=== PATIENT | male | born 1970 | race Caucasian/White ===

== ENCOUNTER 2024-02-19 08:56 | Emergency (ER) | payer SELFPAY ==
[~2024-02-19] VITALS: Ht 177.8 cm; Wt 95.3 kg
[2024-02-19] MEDS ORDERED: PREDNISONE20 M1 PO (09:10)
[2024-02-19] MEDS ORDERED: TRIAMCINOLONE430 GM TD (09:10)
[2024-02-19] MEDS ORDERED: CEPHALEXIN500 M1 PO (09:10)
== END 2024-02-19 09:20 | disposition home or self-care (01) ==
LOC: ED 08:56
DX: L30.9 Dermatitis, unspecified (principal); L03.116 Cellulitis of left lower limb; Z91.040 Latex allergy status; Z98.890 Other specified postprocedural states